=== PATIENT | female | born 1955 | race Caucasian/White ===

== ENCOUNTER 2023-12-28 03:32 | Emergency (ER) | payer MEDICARE, OTHER ==
[~2023-12-28] VITALS: Ht 157.5 cm; Wt 65.0 kg
[2023-12-28 04:45] VITALS: BP 142/95; PULSE 88; RESP 16; TEMP 97.5; O2SAT 95
[2023-12-28] MEDS: CYCLOBENZAPRINE HCL 10 MG TAB PO ONE (04:52)
[2023-12-28] MEDS: KETOROLAC TROMETH 30 MG/ML 1ML VIAL IM ONE (04:53)
[2023-12-28] MEDS ORDERED: CYCL-837 PO (04:54)
== END 2023-12-28 05:07 | disposition home or self-care (01) ==
LOC: EDBD 03:32 → ER 03:32
DX: R25.2 Cramp and spasm (principal); R19.7 Diarrhea, unspecified; I10 Essential (primary) hypertension; J44.9 Chronic obstructive pulmonary disease, unspecified
CPT/HCPCS: 93005; 96372; 99283; J1885